=== PATIENT | male | born 1975 | race Caucasian/White ===

== ENCOUNTER 2017-03-23 12:11 | Emergency (ER) | payer OTHER ==
[~2017-03-23] VITALS: Ht 172.7 cm; Wt 75.0 kg
[2017-03-23 12:29] VITALS: BP 138/79; PULSE 61; RESP 16; TEMP 98.8; O2SAT 97
[2017-03-23 13:00] LABS: AUTOMATED NEUTROPHIL # 4.2 TH/MM3 (1.8-7.7); BASOPHIL # 0.1 TH/MM3 (0-0.2); BASOPHIL % 1.2 % (0.0-2.0); EOSINOPHIL # 0.1 TH/MM3 (0-0.4); EOSINOPHIL % 1.6 % (0.0-4.0); HEMO FLAGS DIFF FINAL; LYMPH % 25.1 % (9.0-44.0); LYMPHOCYTE # 1.7 TH/MM3 (1.0-4.8); MEAN CELL VOLUME 93.3 FL (80.0-100.0); MEAN CORPUSCULAR HEMOGLOBIN 32.5 PG (27.0-34.0); MEAN CORPUSCULAR HGB CONC 34.9 % (32.0-36.0); NEUT % 64.1 % (16.0-70.0); PLATELET COUNT 181 TH/MM3 (150-450); RED BLOOD COUNT 4.07 MIL/MM3 (4.50-5.90); RED CELL DISTRIBUTION WIDTH 13.2 % (11.6-17.2); WHITE BLOOD COUNT 6.6 TH/MM3 (4.0-11.0)
[2017-03-23 13:17] LABS: ALT (GPT) 29 U/L (12-78); ANION GAP 6 MEQ/L (5-15); AST (GOT) 21 U/L (15-37); BICARBONATE 27.6 MEQ/L (21.0-32.0); BLOOD UREA NITROGEN 16 MG/DL (7-18); CHLORIDE 105 MEQ/L (98-107); GLOMERULAR FILTRATION RATE 94 ML/MIN (>89); POTASSIUM 3.6 MEQ/L (3.5-5.1); SODIUM (NA) 139 MEQ/L (136-145)
[2017-03-23 13:18] LABS: ALKALINE PHOSPHATASE 47 U/L (45-117); TOTAL BILIRUBIN ADULT 0.4 MG/DL (0.2-1.0)
[2017-03-23 13:27] VITALS: BP 142/98; PULSE 62; RESP 18; O2SAT 99
--- NOTE | 2017-03-23 13:57 | PD ---
HPI Chief Complaint: Psychiatric Symptoms Time Seen by Provider: 13:36 Travel History International Travel<30 days: No Contact w/Intl Traveler<30days: No Traveled to known affect area: No History of Present Illness HPI 41-year-old male that presents to the ED for evaluation of psychiatric illness. Patient was Hernandez acted by police secondary to stating that he wanted to hurt himself to his . Patient states that he has a history depression but takes no medications for it. He denies any substance abuse. No chest pain or shortness of breath. Other medical issues. He states that he is dealing with his 's cancer and has been having a lot of issues because of this. Per patient he has a lot of stress and per patient's his does not want acknowledge that she is in menopause. She feels fatigued because of this and stated that he mentioned the trying to hurt himself to try to get her to seek help for her medical issues. These apparently backfired on him and he was Hernandez acted by the police that showed up after called. He denies any other medical issues. No suicidal plan. No homicidal ideation. Has never been Hernandez acted before per patient. [facility] Past Medical History Medical History: Denies Significant Hx Past Surgical History Surgical History: No Previous Surgery Other Surgery: Yes (FACIAL) Social History Alcohol Use: Yes (OCCASIONAL) Tobacco Use: No Substance Use: Yes (MARIJUANA) Allergies-Medications (Allergen,Severity, Reaction): Coded Allergies: No Known Allergies (Unverified , 03/23/17) Review of Systems Except as stated in HPI: all other systems reviewed are Neg Physical Exam Narrative GENERAL: SKIN: Warm and dry. HEAD: Atraumatic. Normocephalic. EYES: Pupils equal and round. No scleral icterus. No injection or drainage. ENT: No nasal bleeding or discharge. Mucous membranes pink and moist. Tongue is midline. No uvula deviation. NECK: Trachea midline. No JVD. CARDIOVASCULAR: Regular rate and rhythm. No murmurs, S3, S4. RESPIRATORY: No accessory muscle use. Clear to auscultation. Breath sounds equal bilaterally. GASTROINTESTINAL: Abdomen soft, non-tender, nondistended. Hepatic and splenic margins not palpable. MUSCULOSKELETAL: Extremities without clubbing, cyanosis, or edema. No obvious deformities. Full range of motion of the upper and lower extremities bilaterally. 2+ pulses bilaterally. NEUROLOGICAL: Awake and alert. No obvious cranial nerve deficits. Motor grossly within normal limits. Five out of 5 muscle strength in the arms and legs. Normal speech. PSYCHIATRIC: Appropriate mood and affect; insight and judgment normal. Data Data Last Documented VS Vital Signs Date Time Temp Pulse Resp B/P (MAP) Pulse Ox O2 Delivery O2 Flow Rate FiO2 03/23/17 13:27 62 18 142/98 (113) 99 Room Air 03/23/17 12:29 98.8 Orders Orders Complete Blood Count With Diff (03/23/17 12:33) Comprehensive Metabolic Panel (03/23/17 12:33) Psych Screen (03/23/17 12:33) Drug Screen, Random Urine (03/23/17 12:33) Labs Laboratory Tests Test 03/23/17 12:30 White Blood Count 6.6 TH/MM3 Red Blood Count 4.07 MIL/MM3 Hemoglobin 13.3 GM/DL Hematocrit 38.0 % Mean Corpuscular Volume 93.3 FL Mean Corpuscular Hemoglobin 32.5 PG Mean Corpuscular Hemoglobin Concent 34.9 % Red Cell Distribution Width 13.2 % Platelet Count 181 TH/MM3 Mean Platelet Volume 7.9 FL Neutrophils (%) (Auto) 64.1 % Lymphocytes (%) (Auto) 25.1 % Monocytes (%) (Auto) 8.0 % Eosinophils (%) (Auto) 1.6 % Basophils (%) (Auto) 1.2 % Neutrophils # (Auto) 4.2 TH/MM3 Lymphocytes # (Auto) 1.7 TH/MM3 Monocytes # (Auto) 0.5 TH/MM3 Eosinophils # (Auto) 0.1 TH/MM3 Basophils # (Auto) 0.1 TH/MM3 CBC Comment DIFF FINAL Differential Comment Blood Urea Nitrogen 16 MG/DL Creatinine 0.90 MG/DL Random Glucose 97 MG/DL Total Protein 8.0 GM/DL Albumin 4.2 GM/DL Calcium Level 8.7 MG/DL Alkaline Phosphatase 47 U/L Aspartate Amino Transf (AST/SGOT) 21 U/L Alanine Aminotransferase (ALT/SGPT) 29 U/L Total Bilirubin 0.4 MG/DL Sodium Level 139 MEQ/L Potassium Level 3.6 MEQ/L Chloride Level 105 MEQ/L Carbon Dioxide Level 27.6 MEQ/L Anion Gap 6 MEQ/L Estimat Glomerular Filtration Rate 94 ML/MIN [facility] Medical Decision Making Medical Screen Exam Complete: Yes Emergency Medical Condition: Yes Medical Record Reviewed: Yes Interpretation(s) CBC & BMP Diagram 03/23/17 12:30 Total Protein 8.0, Albumin 4.2, Calcium Level 8.7, Alkaline Phosphatase 47, Aspartate Amino Transf (AST/SGOT) 21, Alanine Aminotransferase (ALT/SGPT) 29, Total Bilirubin 0.4 Differential Diagnosis Depression versus suicidal ideation versus anxiety versus adjustment disorder versus mood disorder versus bipolar disorder versus schizophrenia versus paranoid disorder versus psychosis versus substance abuse versus alcohol abuse versus alcohol induced psychosis versus homicidality addition versus cutting versus personality disorder Narrative Course 41-year-old male that presents to the ED for evaluation of psych. Patient was properly examined and was found to have signs and symptoms consistent psychiatric illness. No sign of acute medical distress. Labs were drawn. Patient was medically clear. Okay to be seen by psych. Mental health screening was discussed with the patient. Diagnosis Primary Impression: Suicidal ideation Elvin Segal Mar 23, 2017 13:56
[2017-03-23 15:52] VITALS: BP 133/81; PULSE 56; RESP 14; TEMP 99.1; O2SAT 98
[2017-03-23 20:19] VITALS: BP 143/98; PULSE 70; RESP 17
[2017-03-23] MEDS ORDERED: diphenhydrAMINE HCL 50 MG CAP PO ONE (22:45)
[2017-03-24 06:37] VITALS: BP 117/56; PULSE 76; RESP 17; O2SAT 99
--- NOTE | 2017-03-24 08:09 | PD ---
Physical Exam Time Seen by Provider: 08:08 Narrative Please refer to previous providers documentation for details surrounding the patient's current visit. Data Data Last Documented VS Vital Signs Date Time Temp Pulse Resp B/P (MAP) Pulse Ox O2 Delivery O2 Flow Rate FiO2 03/24/17 06:37 76 17 117/56 (76) 99 Room Air 03/23/17 15:52 99.1 Orders Orders Complete Blood Count With Diff (03/23/17 12:33) Comprehensive Metabolic Panel (03/23/17 12:33) Psych Screen (03/23/17 12:33) Drug Screen, Random Urine (03/23/17 12:33) Diet Regular Basic (03/23/17 Dinner) Diphenhydramine (Benadryl) (03/23/17 22:45) Diet Regular Basic (03/24/17 Breakfast) Labs Laboratory Tests Test 03/23/17 12:30 03/23/17 14:38 White Blood Count 6.6 TH/MM3 Red Blood Count 4.07 MIL/MM3 Hemoglobin 13.3 GM/DL Hematocrit 38.0 % Mean Corpuscular Volume 93.3 FL Mean Corpuscular Hemoglobin 32.5 PG Mean Corpuscular Hemoglobin Concent 34.9 % Red Cell Distribution Width 13.2 % Platelet Count 181 TH/MM3 Mean Platelet Volume 7.9 FL Neutrophils (%) (Auto) 64.1 % Lymphocytes (%) (Auto) 25.1 % Monocytes (%) (Auto) 8.0 % Eosinophils (%) (Auto) 1.6 % Basophils (%) (Auto) 1.2 % Neutrophils # (Auto) 4.2 TH/MM3 Lymphocytes # (Auto) 1.7 TH/MM3 Monocytes # (Auto) 0.5 TH/MM3 Eosinophils # (Auto) 0.1 TH/MM3 Basophils # (Auto) 0.1 TH/MM3 CBC Comment DIFF FINAL Differential Comment Blood Urea Nitrogen 16 MG/DL Creatinine 0.90 MG/DL Random Glucose 97 MG/DL Total Protein 8.0 GM/DL Albumin 4.2 GM/DL Calcium Level 8.7 MG/DL Alkaline Phosphatase 47 U/L Aspartate Amino Transf (AST/SGOT) 21 U/L Alanine Aminotransferase (ALT/SGPT) 29 U/L Total Bilirubin 0.4 MG/DL Sodium Level 139 MEQ/L Potassium Level 3.6 MEQ/L Chloride Level 105 MEQ/L Carbon Dioxide Level 27.6 MEQ/L Anion Gap 6 MEQ/L Estimat Glomerular Filtration Rate 94 ML/MIN Urine Opiates Screen NEG Urine Barbiturates Screen NEG Urine Amphetamines Screen NEG Urine Benzodiazepines Screen NEG Urine Cocaine Screen NEG Urine Cannabinoids Screen POS MDM Medical Record Reviewed: Yes Supervised Visit with FREDDY: No Narrative Course Patient has been medically cleared, seen and evaluated by psychiatry, and Hernandez act has been lifted. Patient will be discharged home at this time. Diagnosis Primary Impression: Suicidal ideation Additional Impression: Adjustment disorder Qualified Codes: F43.21 - Adjustment disorder with depressed mood Referrals: [facility] (Out patient) Primary Care Physician Patient Instructions: General Instructions, Stress (GEN) Additional Instruction: Follow-up with primary care provider Return immediately with any acute worsening of symptoms Med/Other Pt SpecificInfo: No Change to Meds Disposition: 01 DISCHARGE HOME Condition: Stable Ragini Yanez Mar 24, 2017 08:09
[2017-03-24 08:11] VITALS: BP 117/56; PULSE 76; RESP 17; O2SAT 99
--- NOTE | 2017-03-24 11:45 | PD.PSY.CON ---
Provisional Diagnosis Admission Date [facility] I. Adjustment disorder with depressed mood, cannabis use disorder [facility] II. Deferred [facility] III. No significant medical history [facility] IV. Marital conflict [facility] V. 55 History of Present Illness Service Psychiatry Consult Requested By Suicidal statement Reason for Consult Suicidal statement Primary Care Physician Unknown HPI The patient is a 41-year-old man, domicile in [place] with his and 2 kids, employed, without any previous psychiatric history, no previous psychiatric hospitalizations, no previous suicidal attempts, cannabis use disorder, no significant medical history, who presents to the ED for evaluation of psychiatric illness. Patient was Hernandez acted by police secondary to stating that he wanted to hurt himself to his . On psychiatric evaluation today patient is calm, cooperative and pleasant. Patient reports that since his was diagnosed with cancer in the uterus, even though she is in remission, they have been having frequent conflicts. A month ago she was diagnosed with a necrotic tumor that resulted been benign, but since then he says that his has been irritable, with poor motivation, kind of not potting enough attention in her . He says that he has been patient, he has been fighting with her for many years, but yesterday he was calling her attention about several issues, they engage in an argument and he made a suicidal statement "With the intention to make my point and medically". Patient denies depressive symptoms, he denies anhedonia, he denies hopelessness and helplessness, he denies suicidal and homicidal ideation, he denies visual and auditory hallucinations. Patient says that he has too many reasons to live for including his job, his profession, his family, his kids. He admits that he made a mistake by making a suicidal statement, but he was too overwhelmed. Patient reports occasional use of marijuana, he denies use of alcohol and other illicit drugs. Review of Systems Constitutional: DENIES: Diaphoretic episodes, Fatigue, Fever, Weight gain, Weight loss, Chills, Dizziness, Change in appetite, Night Sweats Endocrine: DENIES: Heat/cold intolerance, Polydipsia, Polyuria, Polyphagia Eyes: DENIES: Blurred vision, Diplopia, Eye inflammation, Eye pain, Vision loss , Photosensitivity, Double Vision Ears, nose, mouth, throat: DENIES: Tinnitus, Hearing loss, Vertigo, Nasal discharge, Oral lesions, Throat pain, Hoarseness, Ear Pain, Running Nose, Epistaxis, Sinus Pain, Toothache, Odynophagia Respiratory: DENIES: Apneas, Cough, Snoring, Wheezing, Hemoptysis, Sputum production, Shortness of breath Cardiovascular: DENIES: Chest pain, Palpitations, Syncope, Dyspnea on Exertion , PND, Lower Extremity Edema, Orthopnea, Claudication Gastrointestinal: DENIES: Abdominal pain, Black stools, Bloody stools, Constipation, Diarrhea, Nausea, Vomiting, Difficulty Swallowing, Anorexia Musculoskeletal: DENIES: Joint pain, Muscle aches, Stiffness, Joint Swelling, Back pain, Neck pain Integumentary: DENIES: Abnormal pigmentation, Nail changes, Pruritus, Rash Hematologic/lymphatic: DENIES: Bruising, Lymphadenopathy Immunologic/allergic: DENIES: Eczema, Urticaria Neurologic: DENIES: Abnormal gait, Headache, Localized weakness, Paresthesias, Seizures, Speech Problems, Tremor, Poor Balance Psychiatric: DENIES: Anxiety, Confusion, Mood changes, Depression, Hallucinations, Agitation, Suicidal Ideation, Homicidal Ideation, Delusions Past Family Social History Coded Allergies: No Known Allergies (Unverified , 03/23/17) Family History Patient reports that his mother is an alcoholic Social History Patient was born and raised in [place], he lives in [place] with his and 2 kids, he is employed as an occupational therapy, his highest level of education is a college degree. Patient's Strengths (min. 2) Family support Physical Exam Vital Signs Vital Signs Date Time Temp Pulse Resp B/P (MAP) Pulse Ox O2 Delivery O2 Flow Rate FiO2 03/24/17 08:12 03/24/17 08:11 76 17 99 Room Air 03/23/17 15:52 99.1 Lab Results Test 03/23/17 12:30 03/23/17 14:38 White Blood Count 6.6 TH/MM3 Red Blood Count 4.07 MIL/MM3 Hemoglobin 13.3 GM/DL Hematocrit 38.0 % Mean Corpuscular Volume 93.3 FL Mean Corpuscular Hemoglobin 32.5 PG Mean Corpuscular Hemoglobin Concent 34.9 % Red Cell Distribution Width 13.2 % Platelet Count 181 TH/MM3 Mean Platelet Volume 7.9 FL Neutrophils (%) (Auto) 64.1 % Lymphocytes (%) (Auto) 25.1 % Monocytes (%) (Auto) 8.0 % Eosinophils (%) (Auto) 1.6 % Basophils (%) (Auto) 1.2 % Neutrophils # (Auto) 4.2 TH/MM3 Lymphocytes # (Auto) 1.7 TH/MM3 Monocytes # (Auto) 0.5 TH/MM3 Eosinophils # (Auto) 0.1 TH/MM3 Basophils # (Auto) 0.1 TH/MM3 CBC Comment DIFF FINAL Differential Comment Blood Urea Nitrogen 16 MG/DL Creatinine 0.90 MG/DL Random Glucose 97 MG/DL Total Protein 8.0 GM/DL Albumin 4.2 GM/DL Calcium Level 8.7 MG/DL Alkaline Phosphatase 47 U/L Aspartate Amino Transf (AST/SGOT) 21 U/L Alanine Aminotransferase (ALT/SGPT) 29 U/L Total Bilirubin 0.4 MG/DL Sodium Level 139 MEQ/L Potassium Level 3.6 MEQ/L Chloride Level 105 MEQ/L Carbon Dioxide Level 27.6 MEQ/L Anion Gap 6 MEQ/L Estimat Glomerular Filtration Rate 94 ML/MIN Urine Opiates Screen NEG Urine Barbiturates Screen NEG Urine Amphetamines Screen NEG Urine Benzodiazepines Screen NEG Urine Cocaine Screen NEG Urine Cannabinoids Screen POS Mental Status Examination Appearance man, age appearing, calm and cooperative Speech: Unremarkable Memory: Unremarkable Thought Process: Logical Thought Content: Unremarkable Hallucination Type: None Suicidal Ideation: No Previous Suicide Attempts: No Homicidal Ideation: No Judgment: WNL Affect if Inappropriate: Flat Mood: Appropriate Motor Activity: Normal gait Assessment & Plan Problem List: (1) Adjustment disorder with depressed mood ICD Codes: F43.21 - Adjustment disorder with depressed mood Assessment & Plan: At the moment of the psychiatric evaluation the patient does not present any evidence of depressive symptoms, anxiety, jessy or psychosis. Patient denies suicidal and homicidal ideation, he denies visual and auditory hallucinations. His recent suicidal statement to his was the result of upsetness and anger. Patient does not meet criteria for psychiatric admission at this moment. His was age 6 collateral information, she agree with discharge. Psychoeducation and support were provided. Hernandez act will be lifted. Assessment & Plan Estimated LOS: Richard Ramirez MD Mar 24, 2017 11:45
== END 2017-03-24 10:33 | disposition home or self-care (01) ==
LOC: NEPJ 12:11
DX: F43.21 Adjustment disorder with depressed mood (principal); R45.851 Suicidal ideations
CPT/HCPCS: 80053; 80307; 85025; 99284; Q0163